=== PATIENT | female | born 1995 | race Caucasian/White ===

== ENCOUNTER 2022-05-09 15:31 | Observation (INO) | payer OTHER ==
[~2022-05-09] VITALS: Ht 160 cm; Wt 73.5 kg
[2022-05-09 16:23] LABS: HEMOGLOBIN 14.7 gm/dl (12.3-15.3); RED BLOOD COUNT 5.02 M/UL (4.00-5.10); WHITE BLOOD COUNT 9.6 K/UL (4.5-11.0)
[2022-05-09 16:45] LABS: BUN/CREATININE RATIO 20 (0-10)
[2022-05-09 19:21] LABS: GAMMA GLUTAMYL TRANSPEPTIDASE 36 U/L (7-64)
[2022-05-10 06:25] LABS: HEMOGLOBIN 13.3 gm/dl (12.3-15.3); RED BLOOD COUNT 4.66 M/UL (4.00-5.10)
[2022-05-10 06:33] LABS: WHITE BLOOD COUNT 6.8 K/UL (4.5-11.0)
[2022-05-10 06:49] LABS: BUN/CREATININE RATIO 18 (0-10)
[2022-05-10] MEDS ORDERED: METFORMIN HCL1000 MG PO (10:18)
[2022-05-10] MEDS ORDERED: HUMULIN N100 UNIT/1 SQ (10:19)
[2022-05-10] MEDS ORDERED: LEVOFLOXACIN500 MG PO (11:59)
--- NOTE | 2022-05-10 19:59 | NUR ---
I WAS INFORMED BY THE PAIN MANAGEMENT NURSE PRACTITIONER THAT THE PT HAD REQUESTED TO LEAVE AGAINST MEDICAL ADVICE. I ENTERED HER ROOM TO TALK TO HER ABOUT LEAVING AGAINST MEDICAL ADVICE. SHE INFORMED ME THAT SHE NEEDED TO BE DISCHARGED BECAUSE OF AN ISSUE WITH HER CHILD. I INFORMED HER OF THE RISK/BENEFITS OF LEAVING AGAINST MEDICAL ADVICE AND STAYING TO RECIEVE CARE. THE PT VERBALIZED HER UNDERSTANDING OF THE RISK/BENEFITS BUT DECIDED THAT SHE STILL WANTS TO LEAVE AGAINST MEDICAL ADVICE. I BROUGHT THE AMA FORM TO HER ROOM AND WITNESSED HER SIGN THE FORM. DR. BEARD WAS NOTIFIED OF THE PTS REQUEST. SEE PROVIDER NOTIFICATION FOR MORE INFORMATION.
[2022-05-11 22:12] LABS: CHLAMYDIA TRACHOMATIS, NAA Negative (Negative); NEISSERIA GONORRHOEAE, NAA Negative (Negative)
== END 2022-05-10 20:10 | disposition left against medical advice (07) ==
LOC: ER1 15:31 → MED SURG 4 18:58 → CDU 18:58 → MED SURG 4 22:09
PROVIDERS: Emergency Medicine; Physician Assistant Medical; ADMIT Internal Medicine
DX: K85.90 Acute pancreatitis without necrosis or infection, unspecified (principal); N39.0 Urinary tract infection, site not specified; E11.65 Type 2 diabetes mellitus with hyperglycemia; F17.210 Nicotine dependence, cigarettes, uncomplicated; Z53.29 Procedure and treatment not carried out because of patient's decision for other reasons; Z90.49 Acquired absence of other specified parts of digestive tract; Z72.89 Other problems related to lifestyle
CPT/HCPCS: 80053; 80061; 80307; 81001; 82962; 82977; 83036; 83690; 84439; 84443; 84703; 85025; 85652; 86140; 87086; 96372; 96374; 96375; 96376; 99285; G0378; G0480; J0696; J1650; J1885; J2270; J2405